=== PATIENT | female | born 2000 | race Caucasian/White ===

== ENCOUNTER 2021-12-24 17:23 | Emergency (ER) | payer SELFPAY ==
[2021-12-24] MEDS ORDERED: Ibuprofen 600 MG Tab PO ONE ×2 (17:50→20:12)
[2021-12-24] MEDS ORDERED: Acetaminophen/oxyCODONE 325-5 MG Tab PO ONE ×2 (17:50→20:12)
[2021-12-24] MEDS ORDERED: Acetaminophen/oxyCODONE 325-5 MG Tab ONE (20:30)
== END 2021-12-24 20:33 | disposition home or self-care (01) ==
LOC: MW.ED 17:23
DX: S82.121A Displaced fracture of lateral condyle of right tibia, initial encounter for closed fracture (principal); W54.1XXA Struck by dog, initial encounter
CPT/HCPCS: 73700; 99283; A9270

== ENCOUNTER 2023-06-10 | Inpatient (IN) | payer MEDICAID ==
[2023-06-10] MEDS: Lactated Ringers 1,000 ML IV SCH ×2 (00:25→21:18)
[2023-06-10] MEDS ORDERED: Misoprostol 200 MCG Tab PO PRN (00:43)
[2023-06-10] MEDS ORDERED: Terbutaline 1 MG/ML SDV SUBCUT PRN (00:43)
[2023-06-10] MEDS ORDERED: Sodium Chloride 0.9% 2.5 ML Syringe FLUSH PRN (00:43)
[2023-06-10] MEDS ORDERED: Ondansetron 4 MG/2 ML SDV IVPUSH PRN (00:43)
[2023-06-10] MEDS ORDERED: Misoprostol 25 MCG (1/4 of 100 MCG) Tab VAG PRN (00:43)
[2023-06-10] MEDS ORDERED: Lidocaine 1% 50 ML MDV INJECT PRN (00:43)
[2023-06-10] MEDS ORDERED: Methylergonovine 0.2 MG/1 ML Amp IM PRN (00:43)
[2023-06-10] MEDS ORDERED: Carboprost Tromethamine 250 MCG/1 mL Vial IM PRN (00:43)
[2023-06-10] MEDS ORDERED: Sodium Chloride 0.9% 20 ML SDV IV PRN (00:43)
[2023-06-10] MEDS ORDERED: Tranexamic Acid IN NACL,ISO-OS 1,000 MG in Premix Bag 1 BAG IV PRN ×2 (00:43)
[2023-06-10] MEDS ORDERED: Misoprostol 25 MCG (1/4 of 100 MCG) Tab PO PRN (00:43)
[2023-06-10] MEDS ORDERED: Water For Irrigation,Sterile 1,000 ML Container IRR PRN (00:43)
[2023-06-10] MEDS ORDERED: Sodium Chloride 0.9% 10 ML Syringe FLUSH PRN (00:43)
[2023-06-10] MEDS ORDERED: Oxytocin/0.9 % Sodium Chloride 30 UNIT/500 ML BAG IV SCH ×2 (00:45)
[2023-06-10 02:52] LABS: HEMATOCRIT 30.2 % (37.0-47.0); HEMOGLOBIN 10.2 g/dL (12.0-16.0); MEAN CORPUSCULAR HEMOGLOBIN 29.1 pg (28.0-32.0); MEAN CORPUSCULAR HGB CONC 33.8 g/dL (32.0-36.0); MEAN PLATELET VOLUME 9.7 fL (9.4-12.3); PLATELET COUNT,PLT 263 K/uL (150-400); RED BLOOD CELL COUNT 3.51 M/uL (4.10-5.30); WHITE BLOOD CELL COUNT,WBC 9.49 K/uL (3.9-11.3)
[2023-06-10] MEDS: Misoprostol 25 MCG (1/4 of 100 MCG) Tab PO PRN ×2 (06:24→10:16)
[2023-06-10] MEDS: Misoprostol 25 MCG (1/4 of 100 MCG) Tab VAG PRN ×2 (06:24→10:16)
[2023-06-10] MEDS ORDERED: ePHEDrine 50 MG/ML SDV IVPUSH PRN ×2 (08:18)
[2023-06-10] MEDS ORDERED: Phenylephrine HCl 0.5 MG/5 ML AMP IVPUSH PRN (08:18)
[2023-06-10] MEDS ORDERED: Ropivacaine HCl/PF 400 MG in Premix Bag 1 BAG EPIDUR SCH (08:30)
[2023-06-10] MEDS: Nalbuphine 10 MG/0.5 ML Syringe IVPUSH PRN ×6 (10:17→22:23)
[2023-06-10 14:19] LABS: AMPHETAMINES SCREEN, URINE NEGATIVE (CUTOFF=500); BARBITURATE SCREEN,URINE NEGATIVE (CUTOFF=200); BENZODIAZEPINES SCREEN,URINE NEGATIVE (CUTOFF=150); BUPRENORPHINE SCREEN,URINE NEGATIVE (CUTOFF=10); METHADONE SCREEN, URINE NEGATIVE (CUTOFF=200); METHAMPHETAMINES SCREEN, URINE NEGATIVE (CUTOFF=500); OXYCODONE SCREEN,URINE NEGATIVE (CUT0FF=100); PCP SCREEN,URINE NEGATIVE (CUTOFF=25); PROPOXYPHENE SCREEN,URINE NEGATIVE (CUTOFF=300); THC SCREEN,URINE 20 NG/ML NEGATIVE (CUTOFF=50)
[2023-06-11] MEDS: Lactated Ringers 1,000 ML IV SCH ×2 (01:47→06:18)
[2023-06-11] MEDS ORDERED: Acetaminophen 325 MG Tab PO ONE (08:13)
[2023-06-11] MEDS ORDERED: Docusate Sodium 100 MG Cap PO PRN (17:51)
[2023-06-11] MEDS ORDERED: Witch Hazel Medicated Pads 40/Jar TOP PRN (17:51)
[2023-06-11] MEDS ORDERED: Bisacodyl 10 MG Supp RECTAL PRN (17:51)
[2023-06-11] MEDS ORDERED: Benzocaine/Menthol 20%-0.5% Spray 78 GM Cannister TOP PRN (17:51)
[2023-06-11] MEDS ORDERED: Lanolin 100% Cream 7 GM Tube TOP PRN (17:51)
[2023-06-11] MEDS: Acetaminophen 500 MG Tab PO PRN (22:16)
[2023-06-12] MEDS: Ibuprofen 800 MG Tab PO PRN ×3 (00:15→20:11)
[2023-06-12 05:50] LABS: HEMATOCRIT 29.1 % (37.0-47.0); HEMOGLOBIN 9.9 g/dL (12.0-16.0)
[2023-06-12] MEDS: Acetaminophen 500 MG Tab PO PRN ×3 (06:25→20:11)
== END 2023-06-12 20:28 | disposition home or self-care (01) | DRG 807 ==
LOC: MW.OB → OBSVTOIN 06-11 17:37 → MW.OB 06-11 23:38
PROVIDERS: ADMIT Obstetrics & Gynecology Obstetrics; ATTEND Obstetrics & Gynecology Obstetrics
PROC: 10E0XZZ Delivery of Products of Conception, External Approach (ICD-10-PCS; principal; 2023-06-11)
PROC: 3E0R3BZ Introduction of Anesthetic Agent into Spinal Canal, Percutaneous Approach (ICD-10-PCS; 2023-06-11)
PROC: 00HU33Z Insertion of Infusion Device into Spinal Canal, Percutaneous Approach (ICD-10-PCS; 2023-06-11)
DX: O48.0 Post-term pregnancy (principal); O42.02 Full-term premature rupture of membranes, onset of labor within 24 hours of rupture; Z37.0 Single live birth; Z3A.40 40 weeks gestation of pregnancy
CPT/HCPCS: 36415; 51702; 59025; 80305-QW; 85014; 85018; 85027; 86592; 86850; 86900; 86901; A9270-GY; J2300; J2590; J7120

== ENCOUNTER 2023-08-13 22:44 | Emergency (ER) | payer MEDICAID ==
[2023-08-14] MEDS ORDERED: Dexamethasone 10 MG/ML SDV PO ONE (00:30)
[2023-08-14] MEDS ORDERED: Acetaminophen 500 MG Tab PO ONE (00:38)
[2023-08-14 01:08] LABS: CORONAVIRUS COVID-19 NAA NEGATIVE (NEGATIVE); INFLUENZA A NAA NEGATIVE (NEGATIVE); INFLUENZA B NAA NEGATIVE (NEGATIVE); RESPIRATORY SYNCYTIAL VIR NAA NEGATIVE (NEGATIVE)
== END 2023-08-14 01:28 | disposition home or self-care (01) ==
LOC: MW.ED 22:44
DX: J02.0 Streptococcal pharyngitis (principal); Z20.822 Contact with and (suspected) exposure to COVID-19
CPT/HCPCS: 0241U; 87651; 99284; A9270; J8540; 99283

== ENCOUNTER 2024-10-30 10:25 | Emergency (ER) | payer MEDICAID ==
[2024-10-30 11:37] LABS: BASOPHILS ABSOLUTE AUTO 0.04 K/uL (0.00-0.20); BASOPHILS PERCENT AUTO 0.5 % (0.0-1.0); EOSINOPHILS ABSOLUTE AUTO 0.15 K/uL (0.00-0.45); EOSINOPHILS PERCENT AUTO 2.1 % (0.0-6.0); HEMATOCRIT 40.3 % (37.0-47.0); HEMOGLOBIN 13.5 g/dL (12.0-16.0); IMMATURE GRAN ABSOLUTE AUTO 0.01 K/uL (0.00-0.05); IMMATURE GRAN PERCENT AUTO 0.1 % (0.0-0.4); LYMPHOCYTES PERCENT AUTO 30.2 % (24.0-44.0); MEAN CORPUSCULAR HEMOGLOBIN 30.3 pg (28.0-32.0); MEAN CORPUSCULAR HGB CONC 33.5 g/dL (32.0-36.0); MEAN CORPUSCULAR VOLUME 90.4 fL (83.0-99.0); MEAN PLATELET VOLUME 9.2 fL (9.4-12.3); MONOCYTES ABSOLUTE AUTO 0.41 K/uL (0.00-0.80); MONOCYTES PERCENT AUTO 5.6 % (0.0-8.0); NEUTROPHILS ABSOLUTE AUTO 4.48 K/uL (1.80-7.70); NEUTROPHILS PERCENT AUTO 61.5 % (41.0-71.0); PLATELET COUNT,PLT 323 K/uL (150-400); RED BLOOD CELL COUNT 4.46 M/uL (4.10-5.30); WHITE BLOOD CELL COUNT,WBC 7.29 K/uL (3.9-11.3)
[2024-10-30 12:08] LABS: APPEARANCE,URINE SLT CLOUDY; BILIRUBIN,URINE NEGATIVE (NEGATIVE); GLUCOSE,URINE NEGATIVE (NEGATIVE); KETONES,URINE NEGATIVE (NEGATIVE); LEUKOCYTE ESTERASE,URINE NEGATIVE (NEGATIVE); NITRITE,URINE NEGATIVE (NEGATIVE); OCCULT BLOOD,URINE LARGE (NEGATIVE); PH,URINE 6.5 (5.0-8.0); PROTEIN,URINE 30 mg/dL (NEGATIVE); UROBILINOGEN,URINE 0.2 EU/dL (<2.0)
[2024-10-30 12:08] LABS: ALBUMIN 4.1 g/dL (3.4-5.0); BILIRUBIN TOTAL 0.5 mg/dL (0.2-1.0); CALCIUM 9.2 mg/dL (8.5-10.1); CARBON DIOXIDE,CO2 27.9 mmol/L (21.0-32.0); CREATININE 0.8 mg/dL (0.6-1.0); EST CRCL DRUG DOSING (CG) 93.64 mL/min; POTASSIUM,K 4.9 mmol/L (3.5-5.1); PROTEIN TOTAL,TP 8.2 g/dL (6.4-8.2)
[2024-10-30 12:12] LABS: COLOR,URINE PINK
[2024-10-30 12:20] LABS: BACTERIA,URINE FEW (NEGATIVE); EPITHELIAL CELLS,URINE MODERATE (NONE-FEW); RBC,URINE 50-60 (0-2/HPF); WBC,URINE 0-4 (0-5/HPF)
== END 2024-10-30 14:12 | disposition home or self-care (01) ==
LOC: MW.ED 10:25
DX: O20.9 Hemorrhage in early pregnancy, unspecified (principal); N83.11 Corpus luteum cyst of right ovary; O34.81 Maternal care for other abnormalities of pelvic organs, first trimester; Z67.40 Type O blood, Rh positive; Z3A.01 Less than 8 weeks gestation of pregnancy; Z75.8 Other problems related to medical facilities and other health care
CPT/HCPCS: 36415; 76817; 76817-26; 80053; 81001; 84702; 85025; 86900; 86901; 99284

== ENCOUNTER 2024-11-01 11:09 | Emergency (ER) | payer MEDICAID | END 2024-11-01 12:54 | disposition home or self-care (01) | LOC: MW.ED 11:09 | DX: O03.9 Complete or unspecified spontaneous abortion without complication (principal); Z90.49 Acquired absence of other specified parts of digestive tract; Z75.3 Unavailability and inaccessibility of health-care facilities | CPT/HCPCS: 36415; 84702; 99284 ==

== ENCOUNTER 2025-06-04 19:47 | Emergency (ER) | payer MEDICAID | END 2025-06-04 22:04 | disposition home or self-care (01) | LOC: MW.ED 19:47 | DX: B34.9 Viral infection, unspecified (principal); J45.909 Unspecified asthma, uncomplicated; Z90.49 Acquired absence of other specified parts of digestive tract | CPT/HCPCS: 87428; 87651; 99284; A9270 ==

== ENCOUNTER 2025-06-08 22:07 | Emergency (ER) | payer MEDICAID ==
[2025-06-08] MEDS ORDERED: Magnesium Sulfate 2 GM/50 mL 2 GM in Premix Bag 1 BAG IV ONE (22:55)
[2025-06-08] MEDS ORDERED: Dexamethasone Sod Phos Preservative Free 10 MG/ML Vial IVPUSH ONE (22:55)
== END 2025-06-08 23:06 | disposition left against medical advice (07) ==
LOC: MW.ED 22:07
DX: M79.10 Myalgia, unspecified site (principal); R51.9 Headache, unspecified; F17.200 Nicotine dependence, unspecified, uncomplicated
CPT/HCPCS: 99283; 99284

== ENCOUNTER 2025-06-09 19:07 | Emergency (ER) | payer MEDICAID ==
[2025-06-09 19:44] LABS: BASOPHILS ABSOLUTE AUTO 0.03 K/uL (0.00-0.20); BASOPHILS PERCENT AUTO 0.3 % (0.0-1.0); EOSINOPHILS ABSOLUTE AUTO 0.03 K/uL (0.00-0.45); EOSINOPHILS PERCENT AUTO 0.3 % (0.0-6.0); IMMATURE GRAN ABSOLUTE AUTO 0.03 K/uL (0.00-0.05); IMMATURE GRAN PERCENT AUTO 0.3 % (0.0-0.4); LYMPHOCYTES ABSOLUTE AUTO 1.89 K/uL (1.00-4.80); LYMPHOCYTES PERCENT AUTO 20.0 % (24.0-44.0); MEAN PLATELET VOLUME 9.0 fL (9.4-12.3); MONOCYTES ABSOLUTE AUTO 0.68 K/uL (0.00-0.80); MONOCYTES PERCENT AUTO 7.2 % (0.0-8.0); NEUTROPHILS ABSOLUTE AUTO 6.77 K/uL (1.80-7.70); NEUTROPHILS PERCENT AUTO 71.9 % (41.0-71.0); NRBC ABSOLUTE 0.00 K/uL (0.00-0.02); NRBC PERCENT 0.0 /100WBC (0.0-0.2); PLATELET COUNT,PLT 332 K/uL (150-400); RED BLOOD CELL COUNT 3.95 M/uL (4.10-5.30); WHITE BLOOD CELL COUNT,WBC 9.43 K/uL (3.9-11.3)
[2025-06-09 20:07] LABS: A/G RATIO 0.7 (0.9-1.6); ALANINE AMINOTRANSFERASE,ALT 48 IU/L (14-63); ASPARTATE AMNIOTRANSFERASE,AST 29 IU/L (15-37); BILIRUBIN TOTAL 0.3 mg/dL (0.2-1.0); BLOOD UREA NITROGEN,BUN 9 mg/dL (7.0-18.0); CARBON DIOXIDE,CO2 21.9 mmol/L (21.0-32.0); CHLORIDE,CL 103 mmol/L (98-107); CREATININE 0.7 mg/dL (0.6-1.0); ESTIMATED GFR 124 mL/min (>60); GLUCOSE RANDOM 94 mg/dL (74-106); POTASSIUM,K 4.7 mmol/L (3.5-5.1); PROTEIN TOTAL,TP 8.0 g/dL (6.4-8.2); SODIUM,NA 136 mmol/L (136-145)
[2025-06-09 20:35] LABS: APPEARANCE,URINE SLT CLOUDY; GLUCOSE,URINE NEGATIVE (NEGATIVE); OCCULT BLOOD,URINE NEGATIVE (NEGATIVE)
[2025-06-09 20:44] LABS: EPITHELIAL CELLS,URINE FEW (NONE-FEW)
== END 2025-06-09 22:11 | disposition home or self-care (01) ==
LOC: MW.ED 19:07
DX: J18.9 Pneumonia, unspecified organism (principal); Z90.49 Acquired absence of other specified parts of digestive tract
CPT/HCPCS: 36415; 70450; 71045; 80053; 81001; 83690; 83735; 84484; 85025; 87428; 99285; A9270; 99283